=== PATIENT | female | born 1995 | race Caucasian/White ===

== ENCOUNTER → 2016-08-20 | Outpatient (CLI) | payer OTHER ==
[~2016-08-20] MED LIST: AMOXICILLIN500 MG PO; BACTRIM DS 8001 TA1 PO; CLARITIN-D 12 H1 TAB PO; CYCLOBENZAPRINE10 MG PO; HYDROCODONE BIT1 T11 PO; IBU800 M1 PO; MOTRIN600 MG PO; SYNTHROID0.025 MG PO
== END | disposition home or self-care (01) ==
LOC: RAD 11:18
DX: Z02.1 Encounter for pre-employment examination (principal); J45.909 Unspecified asthma, uncomplicated; F17.200 Nicotine dependence, unspecified, uncomplicated

== ENCOUNTER 2017-09-22 14:09 | Emergency (ER) | payer OTHER ==
[2017-09-22] MEDS ORDERED: CYCLOBENZAPRINE10 MG PO ×2 (15:33→15:45)
[2017-09-22] MEDS ORDERED: NAPROSYN500 MG PO ×2 (15:33→15:45)
[2017-09-22] MEDS ORDERED: MEDROL DOSEPAK4 MG PO ×2 (15:33→15:45)
== END 2017-09-22 15:37 | disposition home or self-care (01) ==
LOC: ED 14:09
DX: S39.012A Strain of muscle, fascia and tendon of lower back, initial encounter (principal); F17.200 Nicotine dependence, unspecified, uncomplicated; X50.1XXA Overexertion from prolonged static or awkward postures, initial encounter; Y93.89 Activity, other specified; Y92.098 Other place in other non-institutional residence as the place of occurrence of the external cause; Y99.9 Unspecified external cause status

== ENCOUNTER 2018-09-22 19:03 | Emergency (ER) | payer OTHER ==
[~2018-09-22] VITALS: Ht 160 cm; Wt 86.2 kg
[~2018-09-22 19:03] MED LIST changes: +MEDROL DOSEPAK4 MG PO; +NAPROSYN500 MG PO
[2018-09-22] MEDS ORDERED: AMOXICILLIN500 M3 PO (20:14)
== END 2018-09-22 20:25 | disposition home or self-care (01) ==
LOC: ED 19:03
DX: J02.9 Acute pharyngitis, unspecified (principal)

== ENCOUNTER 2019-05-18 13:47 | Emergency (ER) | payer OTHER ==
[~2019-05-18] VITALS: Ht 160 cm; Wt 100.7 kg
[~2019-05-18 13:47] MED LIST changes: +AMOXICILLIN500 M3 PO
== END 2019-05-18 14:11 | disposition home or self-care (01) ==
LOC: ED 13:47
DX: O62.9 Abnormality of forces of labor, unspecified (principal); O26.893 Other specified pregnancy related conditions, third trimester; O99.333 Smoking (tobacco) complicating pregnancy, third trimester; E03.9 Hypothyroidism, unspecified; F17.200 Nicotine dependence, unspecified, uncomplicated; Z3A.37 37 weeks gestation of pregnancy

== ENCOUNTER 2019-05-31 07:51 | Emergency (ER) | payer OTHER ==
[~2019-05-31] VITALS: Ht 160 cm; Wt 99.3 kg
== END 2019-05-31 08:15 | disposition short-term general hospital (02) ==
LOC: ED 07:51
DX: O62.9 Abnormality of forces of labor, unspecified (principal); O99.283 Endocrine, nutritional and metabolic diseases complicating pregnancy, third trimester; E03.9 Hypothyroidism, unspecified; O99.713 Diseases of the skin and subcutaneous tissue complicating pregnancy, third trimester; L40.9 Psoriasis, unspecified; O99.343 Other mental disorders complicating pregnancy, third trimester; F31.9 Bipolar disorder, unspecified; Z3A.39 39 weeks gestation of pregnancy; Z90.49 Acquired absence of other specified parts of digestive tract

== ENCOUNTER 2020-01-22 04:10 | Inpatient (IN) | payer OTHER ==
[2020-01-22] VITALS (7 sets, daily range): BP systolic 101–150; BP diastolic 58–104
[~2020-01-22] VITALS: Ht 162.5 cm; Wt 102.3 kg
--- NOTE | 2020-01-22 05:07 | NUR ---
LAST DOSE OF OTC TYLENOL OR MOTRIN WAS 1800
[2020-01-22 05:28] LABS: BILIRUBIN NEGATIVE; CLARITY TURBID (CLEAR); COLOR YELLOW (YELLOW); GLUCOSE NEGATIVE
[2020-01-22 05:29] LABS: BLOOD 2+ (NEGATIVE); KETONE TRACE; LEUKO ESTERASE 3+ (NEGATIVE); NITRITE POSITIVE (NEGATIVE); PH 5.5 (4.5-8.0); SPECIFIC GRAVITY 1.015 (1.001-1.030)
[2020-01-22 05:30] LABS: WBC TNTC wbc/hpf (0-5)
[2020-01-22 05:48] LABS: HEMATOCRIT 40.5 % (37.0-47.0); MEAN CELL VOLUME 95.3 fl (81.0-99.0); MEAN CORPUSCULAR HGB 32.9 pg (27.0-31.0); MEAN CORPUSCULAR HGB CONC 34.6 g/dl (33.0-37.0); MEAN PLATELET VOLUME 9.1 fl (9.6-12.3); PLATELET COUNT AUTOMATED 234 10*3/uL (130-400); RED BLOOD COUNT 4.25 10*6/uL (4.10-5.10); RED CELL DISTRI WIDTH 12.1 % (0-14.5); WHITE BLOOD COUNT 16.4 10*3/uL (4.8-10.8)
[2020-01-22 06:03] LABS: ALBUMIN 3.3 gm/dl (3.1-4.5); ALKALINE PHOSPHATASE 97 U/L (45-117); BUN 8 mg/dl (7-24); CHLORIDE 105 mmol/L (98-107); CREATININE 0.82 mg/dL (0.55-1.02); POTASSIUM 3.5 mmol/L (3.5-5.1); SGOT/AST 19 IU/L (3-35); SGPT/ALT 30 U/L (12-78); SODIUM 137 mmol/L (136-145); TOTAL PROTEIN 7.7 gm/dL (6.4-8.2)
[2020-01-22 06:12] LABS: PLATELET SUFFICIENCY NORMAL (NORMAL); TOTAL CELLS COUNTED 100 #CELLS
--- NOTE | 2020-01-22 06:30 | NUR ---
PT STATES STARTING TO FEEL NAUSEATED, DR CARDENAS NOTIFIED AND MEDICATED WITH IV ZOFRAN
--- NOTE | 2020-01-22 06:51 | NUR ---
PT LEFT FOR CT SCAN
--- NOTE | 2020-01-22 08:30 | NUR ---
Time: 829 A 24 year old FEMALE admitted to 5E under services of DR. MELISSA ELLIS,BEV. Pt. arrived via ambulatory from ER. Chief complaint: ABDOMINAL AND BACK PAIN. TALA POSADAS
--- NOTE | 2020-01-22 13:56 | NUR ---
PT COMPLAINS OF PAIN AT THIS TIME. ORDERS OBTAINED AND ENTERED FROM DR. TORRES. ONE TIME DILAUDID GIVEN AT THIS TIME. WILL MONITOR FOR EFFECTIVENESS.
--- NOTE | 2020-01-22 14:50 | NUR ---
PT IS ASLEEP, DILAUDID CONSIDERED EFFECTIVE. WILL CONTINUE TO MONITOR.
--- NOTE | 2020-01-22 17:27 | NUR ---
PT HAS FEVER OF 100.7. AND COMPLAINS OF A HEADACHE. PRN TYLENOL ADMINISTERED AT THIS TIME. WILL MONITOR FOR EFFECTIVENESS.
--- NOTE | 2020-01-22 17:33 | NUR ---
[place] NOTIFIED OF DR. GIOVANI CARCAMO.
[2020-01-23] VITALS: BP 114/61
--- NOTE | 2020-01-23 00:08 | NUR ---
PRN NORCO GIVEN PO AT THIS TIME FOR PATIENT COMPLAINT OF 7/10 HEADACHE,LOWER ABDOMINAL AND BACK PAIN. A&O X4, CALL LIGHT WITHIN REACH, WILL CONTINUE TO MONITOR.
--- NOTE | 2020-01-23 01:00 | NUR ---
PRN NORCO APPEARS TO HAVE BEEN EFFECTIVE, PATIENT RESTING WITH EYES CLOSED IN A POSITION OF COMFORT IN BED AND RESPIRATIONS ARE EASY AND NON-LABORED. CALL LIGHT WITHIN REACH, WILL CONTINUE TO MONITOR.
--- NOTE | 2020-01-23 02:09 | NUR ---
PATIENT RESTING PRONE IN BED AT THIS TIME. NO SIGNS OR SYMPTOMS OF DISTRESS NOTED AT THIS TIME. RESPIRATIONS EASY AND NON-LABORED AT THIS TIME. CALL LIGHT WITHIN REACH. WILL CONTINUE TO MONITOR.
[2020-01-23 08:00] VITALS: BP 130/84
--- NOTE | 2020-01-23 08:00 | NUR ---
LYING IN BED WATCHING TV. TEARFUL BUT PLEASANT AND COOPERATIVE. 1:1 WITH SOME EFFECT. C/O PAIN TO RT ABD/BACK. MEDICATED PER PRN NORCO. FLUIDS INFUSING WITHOUT DIFFICULTY. IV SITE ASYMPTOMATIC. ASSESSMENT COMPLETED. WILL MONITOR.
[2020-01-23 12:00] VITALS: BP 130/72
--- NOTE | 2020-01-23 13:46 | NUR ---
MEDICATED WITH PRN PO NORCO FOR C/O RIGHT SIDE (UNDERNEATH RIB CAGE AREA) PAIN RADIATING TO RIGHT SIDE OF BACK AND ALSO HEADACHE, RATES 7/10 ON PAIN SCALE.
--- NOTE | 2020-01-23 14:45 | NUR ---
PRN PO NORCO EFFECTIVE FOR BACK PAIN, BUT HEADACHE PERSISTS.
--- NOTE | 2020-01-23 15:59 | NUR ---
MOTRIN 800MG X 1 ADMINISTERED ORDERED FOR HEADACHE.
[2020-01-23 16:00] VITALS: BP 106/60
[2020-01-23 20:00] VITALS: BP 111/66
--- NOTE | 2020-01-23 21:00 | NUR ---
PATIENT ASSESSMENT COMPLETED WITHOUT INCIDENT. PATIENT DENIES ANY PAIN OR DISCOMFORT AT THIS TIME. RESTING IN BED IN A POSITION OF COMFORT. CALL LIGHT WITHIN REACH. IV FLUIDS INFUSING INTO PERIPHERAL IV WITHOUT INCIDENT AT THIS TIME. WILL CONTINUE TO MONITOR.
--- NOTE | 2020-01-23 23:05 | NUR ---
PRN NORCO GIVEN FOR PT COMPLAINTS OF SIDE PAIN RATING IT 10. CALL LIGHT WITHIN REACH, WILL MONITOR
--- NOTE | 2020-01-23 23:40 | NUR ---
PRN NORCO APPEARS TO HAVE BEEN EFFECTIVE, PATIENT LYING PRONE IN BED, NO SIGNS OR SYMPTOMS OF DISTRESS OR PAIN NOTED AT THIS TIME. CALL LIGHT WITHIN REACH, IV FLUIDS CONTINUE TO INFUSE INTO PERIPHERAL IV WITHOUT INCIDENT. WILL CONTINUE TO MONITOR.
[2020-01-24] VITALS: BP 121/79
--- NOTE | 2020-01-24 02:09 | NUR ---
MEDICATD WITH XANAX FOR C/O ANXIETY.
--- NOTE | 2020-01-24 02:40 | NUR ---
PRN XANAX APPEARS TO HAVE BEEN EFFECTIVE
--- NOTE | 2020-01-24 05:53 | NUR ---
PRN TYLENOL GIVEN AT THIS TIME FOR PATIENT GENERAL COMPLAINT OF PAIN AND HEADACHE 09/26. A&O X4 CALL LIGHT WITHIN REACH, WILL CONTINUE TO MONITOR.
[2020-01-24 08:00] VITALS: BP 136/90
--- NOTE | 2020-01-24 08:51 | NUR ---
MEDICATED WITH PRN PO NORCO FOR SORENESS TO ABDOMEN/SIDE/BACK/NECK.
--- NOTE | 2020-01-24 09:33 | NUR ---
PRN PO NORCO EFFECTIVE, PER PATIENT.
--- NOTE | 2020-01-24 12:52 | NUR ---
MEDICATED WITH PRN PO NORCO FOR ABDOMINAL PAIN. DR. TORRES IN TO SEE PATIENT RE: PLAN OF CARE AND IS ENTERING DISCHARGE ORDERS.
[2020-01-24] MEDS ORDERED: FLUOXETINE HCL10 MG PO (12:56)
[2020-01-24] MEDS ORDERED: CIPRO500 MG PO (12:56)
--- NOTE | 2020-01-24 13:10 | NUR ---
Discharge instructions reviewed with patient. Patient receptive and verbalizes understanding. Follow-up care arranged. Written instructions given to patient. PATIENT DISCHARGED TO [facility], AMBULATORY, FOR TRANSPORT HOME BY PRIVATE VEHICLE WITH HER . JENNI BRVAO
== END 2020-01-24 13:10 | disposition home or self-care (01) | DRG 720 ==
LOC: ED 04:10 → EDHOLD 08:08 → 5E 08:08
PROVIDERS: Emergency Medicine; ADMIT Internal Medicine; ATTEND Internal Medicine
DX: A41.51 Sepsis due to Escherichia coli [E. coli] (principal); N12 Tubulo-interstitial nephritis, not specified as acute or chronic; E66.9 Obesity, unspecified; M54.9 Dorsalgia, unspecified; F17.210 Nicotine dependence, cigarettes, uncomplicated; L81.8 Other specified disorders of pigmentation; F33.9 Major depressive disorder, recurrent, unspecified; F41.1 Generalized anxiety disorder; N39.0 Urinary tract infection, site not specified; B96.20 Unspecified Escherichia coli [E. coli] as the cause of diseases classified elsewhere; Z68.38 Body mass index [BMI] 38.0-38.9, adult; Z71.6 Tobacco abuse counseling; Z90.49 Acquired absence of other specified parts of digestive tract; Z82.49 Family history of ischemic heart disease and other diseases of the circulatory system; Z80.9 Family history of malignant neoplasm, unspecified

== ENCOUNTER → 2020-07-15 | Outpatient (CLI) | payer OTHER ==
[~2020-07-15] MED LIST changes: +CIPRO500 MG PO; +FLUOXETINE HCL10 MG PO
== END | disposition home or self-care (01) ==
LOC: RAD 12:02
PROVIDERS: ATTEND Family Medicine
DX: M48.07 Spinal stenosis, lumbosacral region (principal); Z91.81 History of falling

== ENCOUNTER 2021-06-09 01:42 | Emergency (ER) | payer OTHER ==
[~2021-06-09] VITALS: Ht 162.5 cm; Wt 102.1 kg
[2021-06-09] MEDS ORDERED: AUGMENTIN 875875 MG PO (01:51)
[2021-06-09 02:09] LABS: BASO % 0.1 % (0.0-1.0); EOS # 0.1 10*3/uL (0.0-0.4); EOS % 1.1 % (1.0-4.0); LYMPH # 0.5 10*3/uL (1.3-4.4); LYMPH % 5.5 % (27.0-41.0); MEAN CELL VOLUME 92.9 fl (81.0-99.0); MEAN CORPUSCULAR HGB 33.5 pg (27.0-31.0); MONO # 0.9 10*3/uL (0.1-1.0); NEUT # 7.5 10*3/uL (2.3-7.9); NEUT % 83.1 % (47.0-73.0); PLATELET COUNT AUTOMATED 252 10*3/uL (130-400); RED BLOOD COUNT 4.63 10*6/uL (4.10-5.10); RED CELL DISTRI WIDTH 11.7 % (0-14.5); WHITE BLOOD COUNT 9.1 10*3/uL (4.8-10.8)
[2021-06-09 02:26] LABS: ALBUMIN 3.8 gm/dl (3.1-4.5); ALKALINE PHOSPHATASE 109 U/L (45-117); BUN 7 mg/dl (7-24); CHLORIDE 109 mmol/L (98-107); LIPASE 71 U/L (73-393); POTASSIUM 3.7 mmol/L (3.5-5.1); SGOT/AST 12 IU/L (3-35); SGPT/ALT 24 U/L (12-78); SODIUM 138 mmol/L (136-145); TOTAL PROTEIN 7.6 gm/dL (6.4-8.2)
[2021-06-09 02:28] LABS: B-hCG (QUALITATIVE) NEGATIVE (NEGATIVE)
[2021-06-09 02:47] LABS: BILIRUBIN Negative (Negative); BLOOD Negative (Negative); CLARITY Turbid (Clear); COLOR Dark Yellow (Yellow); GLUCOSE Negative (Negative); KETONE Trace (Negative); LEUKO ESTERASE Trace (Negative); NITRITE Negative (Negative); SPECIFIC GRAVITY >= 1.030 (1.001-1.030)
[2021-06-09 03:06] LABS: EPITHELIAL CELLS TNTC
[2021-06-09 03:07] LABS: BACTERIA 1+
[2021-06-09] MEDS ORDERED: ZITHROMAX TRI-500 M1 PO (03:55)
== END 2021-06-09 04:27 | disposition home or self-care (01) ==
LOC: ED 01:42
PROVIDERS: Emergency Medicine
DX: K52.9 Noninfective gastroenteritis and colitis, unspecified (principal); J40 Bronchitis, not specified as acute or chronic; E03.9 Hypothyroidism, unspecified

== ENCOUNTER → 2022-03-23 | Outpatient (CLI) | payer OTHER ==
[~2022-03-23] MED LIST changes: +AUGMENTIN 875875 MG PO; +ZITHROMAX TRI-500 M1 PO
== END ==
LOC: RAD 12:38
PROVIDERS: ATTEND Nurse Practitioner Family
DX: Z11.1 Encounter for screening for respiratory tuberculosis (principal)

== ENCOUNTER 2022-06-16 07:23 | Emergency (ER) | payer OTHER ==
[~2022-06-16] VITALS: Wt 95.3 kg
[2022-06-16] MEDS ORDERED: OMEPRAZOLE40 MG PO (07:47)
== END 2022-06-16 07:59 | disposition home or self-care (01) ==
LOC: ED 07:23
DX: K29.70 Gastritis, unspecified, without bleeding (principal); R10.13 Epigastric pain; Z90.49 Acquired absence of other specified parts of digestive tract